=== PATIENT | female | born 1960 ===

== ENCOUNTER 2016-11-18 14:03 | Emergency (ER) | payer MEDICAID ==
[2016-11-18 14:14] VITALS: BP 150/82; PULSE 62; RESP 20; TEMP 98.7
[2016-11-18] MEDS ORDERED: Albuterol-Ipratrop 3 mg / 0.5 (3 ml) UD INH STA (14:29)
[2016-11-18] MEDS ORDERED: Albuterol-Ipratrop 3 mg / 0.5 (3 ml) UD ONE (14:32)
--- NOTE | 2016-11-18 14:33 | C.PDOC ---
History Of Present Illness 56 y/o female, with PMHx of asthma, presents to ED for evaluation of digitally and positionally reproducible left parasternal chest pain. Pt reports occasional shortness of breath. Notes symptoms are worse with deep breathing. Denies using nebulizer machine at home. Denies being hospitalized in the past for asthma. Otherwise, denies any cough, nausea, vomiting, or fever. Unremarkable cardiac work up on 02/2016. Time Seen by Provider: 11/18/16 14:23 Chief Complaint (Nursing): Shortness Of Breath History Per: Patient History/Exam Limitations: no limitations Onset/Duration Of Symptoms: Hrs Current Symptoms Are (Timing): Still Present Quality: "Pain" Associated Symptoms: Chest Pain. denies: Fever, Chills, Sweating, Bloody Cough , Productive Cough, Heart Racing, Leg/Calf Pain, Ankle/Leg Swelling, Dizziness, Light-headedness, Anxiety, Tingling In Hands Or Face, Musle Spasms In Hands Or Feet Recent travel outside of the [place]: No Additional History Per: Patient Past Medical History Reviewed: Historical Data, Nursing Documentation, Vital Signs Vital Signs: Last Vital Signs Temp 98.7 F 11/18/16 14:11 Pulse 62 11/18/16 14:11 Resp 20 11/18/16 14:11 BP 150/82 11/18/16 14:11 Pulse Ox 98 11/18/16 14:40 - Medical History PMH: Asthma, Colonic Polyps, HTN, Hypercholesterolemia, Osteoporosis Denies: Chronic Kidney Disease - [facility] Procedures INCIS W REM OF FORIEGN BODY OR DEV FROM SKIN & SUBCUT TISSUE (02/18/13) Family History: States: Unknown Family Hx - Social History Hx Alcohol Use: No Hx Substance Use: No - Immunization History Hx Tetanus Toxoid Vaccination: No Hx Influenza Vaccination: No Hx Pneumococcal Vaccination: No Review Of Systems Except As Marked, All Systems Reviewed And Found Negative. Constitutional: Negative for: Fever, Chills Cardiovascular: Positive for: Chest Pain. Negative for: Palpitations, Edema, Light Headedness Respiratory: Positive for: Shortness of Breath. Negative for: Cough, Hemoptysis , Sputum Gastrointestinal: Negative for: Nausea, Vomiting, Abdominal Pain Neurological: Negative for: Headache, Dizziness Physical Exam - Physical Exam Appears: Non-toxic, No Acute Distress, Other (smiling, pleasant) Skin: Normal Color, Warm, Dry, No Rash Head: Atraumatic, Normacephalic Eye(s): bilateral: Normal Inspection Nose: Normal Oral Mucosa: Moist Neck: Normal ROM, Supple Chest: Symmetrical, No Deformity, Tenderness (digitally and positionally reproducible left parasternal chest pain, around T5. ) Cardiovascular: Rhythm Regular, No Murmur Respiratory: Normal Breath Sounds, No Rales, No Rhonchi, No Wheezing Gastrointestinal/Abdominal: Soft, No Tenderness Extremity: Bilateral: Atraumatic, Normal ROM Neurological/Psych: Oriented x3, Normal Speech, Normal Cognition ED Course And Treatment ECG: Interpreted By Me, Viewed By Me ECG Rhythm: Sinus Rhythm ECG Interpretation: No Acute Changes Rate From EC (bpm) O2 Sat by Pulse Oximetry: 98 (on RA) Pulse Ox Interpretation: Normal Medical Decision Making Medical Decision Making: subjective sob with L parasternal chest wall discomfort is positionally and digitally reproducable lungs clear and NO asthma s/s now. normal exam and many prior evals for same- last July 2016 @ [facility] ED no nebulizer machine @ home and does not want steroids hard of hearing makes interrogatory difficult- though pt pleasant/smiling throughout. Disposition Doctor Will See Patient In The: Office Counseled Patient/Family Regarding: Studies Performed, Diagnosis - Disposition Referrals: Love Trejo MD [Medical Doctor] - Disposition: HOME/ ROUTINE Disposition Time: 14:33 Condition: GOOD Additional Instructions: sigue ibuprofeno 400-600 mg cada 6 horas azar necessario No levanta nada pesada por desiree semana pepcid/Protonix cada noche para prevenir irritacio'[n del estomacho debido al ibuprofeno. Sigue yara inhaladores azar normal/necessario Sigue con adams Medico azar necessario. Instructions: Costochondritis (ED) Forms: [employer] (Congolese) Print Language: NICARAGUAN - Clinical Impression Clinical Impression: Chest wall discomfort, SOB (shortness of breath) - Scribe Statement The provider has reviewed the documentation as recorded by the Scribe Thelma Lei All medical record entries made by the Scribe were at my direction and personally dictated by me. I have reviewed the chart and agree that the record accurately reflects my personal performance of the history, physical exam, medical decision making, and the department course for this patient. I have also personally directed, reviewed, and agree with the discharge instructions and disposition.
[2016-11-18 14:35] VITALS: O2SAT 98
--- NOTE | 2016-11-22 19:43 | CARD ---
APPROVED REPORT EKG Measurement Heart [id number] UT 144P32 [id number] <Conclusion> Sinus bradycardia Voltage criteria for left ventricular hypertrophy Abnormal ECG
== END 2016-11-18 15:14 | disposition home or self-care (01) ==
LOC: C.ER 14:03
DX: R07.89 Other chest pain (principal); R06.02 Shortness of breath

== ENCOUNTER 2017-01-04 13:04 | Emergency (ER) | payer MEDICAID ==
[2017-01-04 13:15] VITALS: TEMP 98
--- NOTE | 2017-01-04 14:04 | C.PDOC ---
History Of Present Illness 56 y/o female with PMHx of Asthma and HTN presents to ED with complaints of subjective fever and "burning pain in colon". Patient states fever has been intermittent since Monday. Sandra is concerned about having her colonoscopy scheduled but has not been able to follow up with Dr Hitesh Tong. Patient reports this morning she had a bowel movement and when she wiped, noted string of blood. She reports a recent cough with chest congestion and felt feverish for the past several days. She has a history of asthma and has been using her inhalers as prescribed. She called her primary MD 5 days ago and a Zithromax pack was called into the pharmacy for her. She has completed the medication but does not feel much better. Time Seen by Provider: 01/04/17 13:44 Chief Complaint (Nursing): Fever History Per: Patient History/Exam Limitations: no limitations Onset/Duration Of Symptoms: Days Current Symptoms Are (Timing): Still Present Associated Symptoms: Fever Past Medical History Reviewed: Historical Data, Nursing Documentation, Vital Signs Vital Signs: Last Vital Signs Temp 98 F 01/04/17 13:14 Pulse 69 01/04/17 13:14 Resp 18 01/04/17 13:14 BP 158/88 H 01/04/17 13:14 Pulse Ox 97 01/04/17 15:11 - Medical History PMH: Asthma, Colonic Polyps, HTN, Hypercholesterolemia, Osteoporosis Surgical History: No Surg Hx - [facility] Procedures INCIS W REM OF FORIEGN BODY OR DEV FROM SKIN & SUBCUT TISSUE (02/18/13) Family History: States: No Known Family Hx - Social History Hx Alcohol Use: No Hx Substance Use: No - Immunization History Hx Tetanus Toxoid Vaccination: No Hx Influenza Vaccination: No Hx Pneumococcal Vaccination: No Review Of Systems Constitutional: Positive for: Fever. Negative for: Chills Respiratory: Negative for: Shortness of Breath Gastrointestinal: Positive for: Hematochezia. Negative for: Abdominal Pain, Diarrhea, Constipation Genitourinary: Negative for: Dysuria, Hematuria Skin: Negative for: Rash Physical Exam - Physical Exam Appears: Non-toxic, No Acute Distress Skin: Normal Color, Warm, Dry, No Rash Head: Atraumatic, Normacephalic Eye(s): bilateral: Normal Inspection, PERRL, EOMI Nose: Normal Oral Mucosa: Moist Throat: Normal, No Erythema, No Exudate Neck: Normal ROM Lymphatic: Adenopathy (left sided) Cardiovascular: Rhythm Regular Respiratory: Normal Breath Sounds, No Rales, No Rhonchi, No Wheezing Gastrointestinal/Abdominal: Bowel Sounds, Soft, No Tenderness, No Guarding, No Rebound Neurological/Psych: Oriented x3, Normal Motor, Normal Sensation ED Course And Treatment - Laboratory Results Result Diagrams: 01/04/17 14:39 01/04/17 14:39 Lab Interpretation: No Acute Changes O2 Sat by Pulse Oximetry: 97 (RA) Pulse Ox Interpretation: Normal - Radiology CXR: Viewed By Me, Read By Radiologist CXR Interpretation: Yes: No Acute Disease Reevaluation Time: 15:11 Reassessment Condition: Unchanged (Patient remains comfortable in ED.) Disposition Counseled Patient/Family Regarding: Studies Performed, Diagnosis, Need For Followup - Disposition Referrals: Monty Tong MD [Staff Provider] - Disposition: HOME/ ROUTINE Disposition Time: 15:19 Condition: STABLE Instructions: Asthma (ED) Forms: [employer] (Sami) - Clinical Impression Clinical Impression: Asthma - Scribe Statement The provider has reviewed the documentation as recorded by the Scribjusto Guerra All medical record entries made by the Scribe were at my direction and personally dictated by me. I have reviewed the chart and agree that the record accurately reflects my personal performance of the history, physical exam, medical decision making, and the department course for this patient. I have also personally directed, reviewed, and agree with the discharge instructions and disposition.
--- NOTE | 2017-01-04 14:38 | RAD ---
HISTORY: COMPARISON: 11/23/2015. TECHNIQUE: Chest PA and lateral FINDINGS: LINES AND TUBES: None. LUNG AND PLEURA: The lungs are well inflated and clear. HEART AND MEDIASTINUM: The heart is not enlarged. The hilar and mediastinal contours are within normal limits. SKELETAL STRUCTURES: The bony structures are within normal limits for the patient's age. VISUALIZED UPPER ABDOMEN: Normal. OTHER FINDINGS: None. IMPRESSION: No active pulmonary disease.
[2017-01-04 14:42] LABS: BASO % 0.4 % (0.0-2.0); EOS # 0.2 K/uL (0.0-0.7); EOS % 2.3 % (0.0-4.0); HEMATOCRIT 38.8 % (34.0-47.0); LYMPH # 3.4 K/uL (1.0-4.3); LYMPH % 44.1 % (20.0-40.0); MEAN CELL VOLUME 84.8 fL (81.0-99.0); MEAN CORPUSCULAR HEMOGLOBIN 28.7 pg (27.0-31.0); MEAN CORPUSCULAR HGB CONC 33.9 g/dL (33.0-37.0); MEAN PLATELET VOLUME 11.3 fL (7.2-11.7); MONO # 0.5 K/uL (0.0-0.8); MONO % 6.6 % (0.0-10.0); NRBC % 0.1 % (0.0-2.0); RED CELL DISTRIBUTION WIDTH 13.5 % (11.5-14.5); WHITE BLOOD COUNT 7.8 K/uL (4.8-10.8)
[2017-01-04 14:52] LABS: CHLORIDE 101 mmol/L (98-107)
[2017-01-04 14:53] LABS: POTASSIUM 3.8 mmol/L (3.6-5.2); SODIUM 138 mmol/L (132-148)
[2017-01-04 14:55] LABS: ALB/GLOB RATIO 1.1 (1.0-2.1); AST/SGOT 26 U/L (14-36); BILIRUBIN,TOTAL 0.4 mg/dL (0.2-1.3); CARBON DIOXIDE 27 mmol/L (22-30); GFR AFRICAN-AMERICAN > 60; TOTAL PROTEIN 8.2 g/dL (6.3-8.3)
[2017-01-04 14:56] LABS: ALKALINE PHOSPHATASE 78 U/L (38-126); ALT/SGPT 57 U/L (9-52); BLOOD UREA NITROGEN 14 mg/dL (7-17); CALCIUM 9.5 mg/dl (8.6-10.4); GLUCOSE,RANDOM 72 mg/dL (65-105)
[2017-01-04 15:15] LABS: RBC URINE 8 /hpf (0-3); URINE BILIRUBIN NEGATIVE (NEGATIVE); URINE BLOOD 2+ (NEGATIVE); URINE COLOR Yellow (YELLOW); URINE GLUCOSE (UA) NORMAL (Normal); URINE KETONE NEGATIVE (NEGATIVE); URINE LEUKOCYTE ESTERASE NEG Leu/uL (Negative); URINE PROTEIN NEGATIVE (NEGATIVE); URINE UROBILINOGEN NORMAL mg/dL (0.2-1.0); WBC URINE < 1 /hpf (0-5)
[2017-01-04 15:27] VITALS: BP 147/93; PULSE 51; RESP 20; O2SAT 98
--- NOTE | 2017-01-05 13:09 | CARD ---
APPROVED REPORT EKG Measurement Heart [id number] AL 150P37 [id number] <Conclusion> Sinus bradycardia Moderate voltage criteria for LVH, may be normal variant Nonspecific T wave abnormality Abnormal ECG
== END 2017-01-04 15:27 | disposition home or self-care (01) ==
LOC: C.ER 13:04
DX: J45.909 Unspecified asthma, uncomplicated (principal)

== ENCOUNTER 2017-01-12 07:01 | Day surgery (SDC) | payer MEDICAID ==
--- NOTE | 2017-01-12 09:45 | CP.SDSHP ---
Same Day Surgery H & P - History Proposed Procedure: colonoscopy Pre-Op Diagnosis: screening - Previous Medical/Surgical History Comments: cervical and breast cancer - Allergies Allergies: Allergies garlic Allergy (Verified 01/12/17 07:56) RASH trupti Allergy (Verified 01/12/17 07:56) RASH mashpee Allergy (Verified 01/12/17 07:56) RASH - Physical Exam General Appearance: NAD Vital Signs: Vital Signs 01/12/17 07:40 Temperature 97.3 F L Pulse Rate 80 Respiratory 20 Rate Blood Pressure 143/75 O2 Sat by Pulse 97 Oximetry Mental Status: Alert & Oriented x3 Neuro: WNL Heart: WNL Lungs: WNL GI: WNL - {Optional Preform as Required} Abdomen: WNL - Impression Pt. Evaluated Today:Candidate for Anesthesia & Procedure: Yes - Date & Time Date: 01/12/17 Time: 09:45 Short Stay Discharge - Short Stay Discharge Admitting Diagnosis/Reason for Visit: RECTAL BLEEDING Disposition: HOME/ ROUTINE
[2017-01-12] MEDS ORDERED: Propofol 10 mg/ml Inj (20 ML) ONE (09:49)
[2017-01-12] MEDS ORDERED: Atropine Sulfate 0.4 mg/ml (0.8mg/2ml) Syringe IV ONE (09:53)
[2017-01-12] MEDS ORDERED: Lactated Ringer's 500 ML IV SCH (10:00)
[2017-01-12 10:27] VITALS: RESP 11; TEMP 96.8
[2017-01-12 11:15] VITALS: BP 106/65; PULSE 61; O2SAT 100
== END 2017-01-12 14:26 | disposition home or self-care (01) ==
LOC: C.ENDO 07:01
PROVIDERS: ATTEND Internal Medicine Gastroenterology
DX: D12.2 Benign neoplasm of ascending colon (principal); K64.8 Other hemorrhoids
CPT/HCPCS: 45388; 88305; J2704; J3010; J7120

== ENCOUNTER 2017-02-13 20:03 | Emergency (ER) | payer MEDICAID ==
[2017-02-13 21:47] LABS: BASO # 0.1 K/uL (0.0-0.2); BASO % 0.4 % (0.0-2.0); EOS # 0.2 K/uL (0.0-0.7); EOS % 1.8 % (0.0-4.0); HEMATOCRIT 41.3 % (34.0-47.0); LYMPH # 5.2 K/uL (1.0-4.3); LYMPH % 45.5 % (20.0-40.0); MEAN CELL VOLUME 85.5 fL (81.0-99.0); MEAN CORPUSCULAR HEMOGLOBIN 28.5 pg (27.0-31.0); MEAN CORPUSCULAR HGB CONC 33.3 g/dL (33.0-37.0); MEAN PLATELET VOLUME 12.4 fL (7.2-11.7); MONO # 0.7 K/uL (0.0-0.8); RED CELL DISTRIBUTION WIDTH 13.6 % (11.5-14.5); WHITE BLOOD COUNT 11.4 K/uL (4.8-10.8)
[2017-02-13 22:00] LABS: ALB/GLOB RATIO 1.5 (1.0-2.1); ALKALINE PHOSPHATASE 79 U/L (38-126); ALT/SGPT 66 U/L (9-52); AST/SGOT 35 U/L (14-36); BILIRUBIN,TOTAL 0.7 mg/dL (0.2-1.3); BLOOD UREA NITROGEN 25 mg/dL (7-17); CALCIUM 9.2 mg/dl (8.6-10.4); CARBON DIOXIDE 27 mmol/L (22-30); CHLORIDE 97 mmol/L (98-107); GFR AFRICAN-AMERICAN > 60; GLUCOSE,RANDOM 79 mg/dL (65-105); POTASSIUM 3.5 mmol/L (3.6-5.2); SODIUM 138 mmol/L (132-148); TOTAL PROTEIN 7.7 g/dL (6.3-8.3)
--- NOTE | 2017-02-13 22:41 | C.PDOC ---
History Of Present Illness Patient presents to the ER with a complaint of a nonproductive cough worsening over the past few days. Patient reports she has had some chest discomfort as a result of the cough. Denies fever, chills, nausea, or vomiting. Time Seen by Provider: 02/13/17 22:41 Chief Complaint (Nursing): Chest Pain History Per: Patient History/Exam Limitations: no limitations Onset/Duration Of Symptoms: Days Current Symptoms Are (Timing): Still Present Severity: Mild Pain Scale Rating Of: 4 Associated Symptoms: denies: Nausea, Dyspnea, Diaphoresis, Syncope Modifying Factors: None Exacerbating Factors: None Alleviating Factors: None Recent travel outside of the [place]: No Past Medical History Reviewed: Historical Data, Nursing Documentation, Vital Signs Vital Signs: Last Vital Signs Temp 98.1 F 02/13/17 23:23 Pulse 61 02/13/17 23:23 Resp 16 02/13/17 23:23 BP 129/80 02/13/17 23:23 Pulse Ox 98 02/13/17 23:23 - Medical History PMH: Asthma, Colonic Polyps, HTN, Hypercholesterolemia, Osteoporosis Surgical History: No Surg Hx - [facility] Procedures INCIS W REM OF FORIEGN BODY OR DEV FROM SKIN & SUBCUT TISSUE (02/18/13) Family History: States: No Known Family Hx - Social History Hx Alcohol Use: No Hx Substance Use: No - Immunization History Hx Tetanus Toxoid Vaccination: No Hx Influenza Vaccination: Yes Hx Pneumococcal Vaccination: No Review Of Systems Constitutional: Negative for: Fever, Chills Respiratory: Positive for: Cough Gastrointestinal: Negative for: Nausea, Vomiting Physical Exam - Physical Exam Appears: Non-toxic Skin: Warm, Dry Head: Normacephalic Oral Mucosa: Moist Throat: No Erythema, No Exudate Chest: Symmetrical Cardiovascular: Rhythm Regular Respiratory: No Rales, No Rhonchi, No Wheezing Gastrointestinal/Abdominal: Soft, No Tenderness Neurological/Psych: Oriented x3 ED Course And Treatment - Laboratory Results Result Diagrams: 02/13/17 21:39 02/13/17 21:39 ECG: Interpreted By Me, Viewed By Me ECG Rhythm: Sinus Rhythm (61), Nonspecific Changes Pulse Ox Interpretation: Normal Progress Note: Blood work and CXR ordered. Zithromax administered. Medical Decision Making Medical Decision Making: Upon provider reevaluation patient is feeling better, is medically stable, and requires no further treatment in the ED at this time. Patient will be discharged home with Rx for zithromax, albuterol hfa . Counseling was provided and all questions were answered regarding diagnosis and need for follow up with dr trejo. There is agreement to discharge plan. Return if symptoms persist or worsen. Disposition Counseled Patient/Family Regarding: Studies Performed, Diagnosis, Need For Followup, Rx Given - Disposition Referrals: Love Trejo MD [Medical Doctor] - Disposition: HOME/ ROUTINE Disposition Time: 23:21 Condition: FAIR Additional Instructions: Please return if symptoms recur Prescriptions: Albuterol HFA [Ventolin HFA 90 mcg/actuation (8 g)] 2 puff IH [id number] #1 puff Azithromycin [Zithromax Tri-Bob] 500 mg PO DAILY #3 tablet Instructions: Acute Bronchitis (ED) Forms: [employer] ([place] Islander) - Clinical Impression Clinical Impression: Bronchitis, Reactive airway disease - Scribe Statement The provider has reviewed the documentation as recorded by the Scribjusto Banuelos All medical record entries made by the Scribe were at my direction and personally dictated by me. I have reviewed the chart and agree that the record accurately reflects my personal performance of the history, physical exam, medical decision making, and the department course for this patient. I have also personally directed, reviewed, and agree with the discharge instructions and disposition.
[2017-02-13 23:32] VITALS: BP 129/80; PULSE 61; RESP 16; TEMP 98.1; O2SAT 98
--- NOTE | 2017-02-14 08:33 | RAD ---
PROCEDURE: CHEST RADIOGRAPH, 1 VIEW HISTORY: Shortness of breath COMPARISON: 01/04/2017 FINDINGS: LUNGS: Mild venous congestion. Right hilar prominence. Minimal patchy increased markings at the left lung base. PLEURA: No pneumothorax or pleural fluid seen. CARDIOVASCULAR: Normal. OSSEOUS STRUCTURES: Calcific tendinopathy of the right proximal humerus. VISUALIZED UPPER ABDOMEN: Normal. OTHER FINDINGS: None. IMPRESSION: Mild venous congestion. Right hilar prominence. Minimal patchy increased markings at the left lung base. Calcific tendinopathy of the right proximal humerus.
--- NOTE | 2017-02-14 19:28 | CARD ---
APPROVED REPORT EKG Measurement Heart [id number] OR 148P35 [id number] <Conclusion> Normal sinus rhythm Possible Left atrial enlargement Left ventricular hypertrophy T wave abnormality, consider anterior ischemia Prolonged QT Abnormal ECG
== END 2017-02-13 23:36 | disposition home or self-care (01) ==
LOC: C.ER 20:03
DX: J45.909 Unspecified asthma, uncomplicated (principal)

== ENCOUNTER 2018-07-24 15:11 | Outpatient (CLI) | payer MEDICAID | END 2018-08-02 13:12 | disposition home or self-care (01) | LOC: C.MAMMO 15:11 ==